=== PATIENT | male | born 1995 | race Caucasian/White ===

== ENCOUNTER 2017-01-15 22:10 | Emergency (ER) | payer SELFPAY ==
[~2017-01-15] VITALS: Ht 172.7 cm; Wt 61.8 kg
[~2017-01-15 22:10] MED LIST: LORA10TA PO; NAPR-576 PO
[2017-01-15 22:17] VITALS: BP 116/87; PULSE 72; RESP 16; TEMP 98.7; O2SAT 98
[2017-01-15 22:44] VITALS: BP 116/87; PULSE 72; RESP 18; TEMP 98.7; O2SAT 98
[2017-01-15] MEDS ORDERED: LAMI1AER TOPICAL (23:39)
--- NOTE | 2017-01-15 23:47 | PD ---
HPI Chief Complaint: Skin Problem Time Seen by Provider: 23:31 Travel History International Travel<30 days: No Contact w/Intl Traveler<30days: No Traveled to known affect area: No History of Present Illness HPI The patient is a 21-year-old male who has had a problem with discoloration of the skin for over a year. Upon the recommendation of the pharmacist he tried Selsun Blue and the rash got more erythematous and became extremely pruritic. This is been in the last 2 days he has had this pruritic rash which she states was made worse by the Selsun Blue. He has an area of skin on the back of his neck that was not treated with Selsun Blue and this does appear to be tinea versicolor. PFSH Past Medical History Diminished Hearing: No Immunizations Current: Yes (UTD) Tetanus Vaccination: Unknown Influenza Vaccination: No Social History Alcohol Use: No Tobacco Use: No Substance Use: No Allergies-Medications (Allergen,Severity, Reaction): Coded Allergies: No Known Allergies (Verified , 02/26/16) Reported Meds & Prescriptions Reported Meds & Active Scripts Active Lamisil AF Defense Topical (Tolnaftate) 1 % Aer 1 Applic TOPICAL HS Naproxen 500 Mg Tab 500 Mg PO BID PRN Reported Claritin 10 Mg Tab (Loratadine) 10 Mg Tab 10 Mg PO DAILY Review of Systems Except as stated in HPI: all other systems reviewed are Neg Physical Exam Narrative GENERAL: Well-nourished, well-developed patient in slight apparent distress with his pruritic rash on his chest. His vital signs are normal. SKIN: Warm and dry. There are patchy areas of decreased pigmentation surrounded by erythematous areas. The patient finds this rash on his chest very pruritic. HEAD: Normocephalic. EYES: No scleral icterus. No injection or drainage. NECK: Supple, trachea midline. No JVD or lymphadenopathy. CARDIOVASCULAR: Regular rate and rhythm without murmurs, gallops, or rubs. RESPIRATORY: Breath sounds equal bilaterally. No accessory muscle use. GASTROINTESTINAL: Abdomen soft, non-tender, nondistended. MUSCULOSKELETAL: No cyanosis, or edema. BACK: Nontender without obvious deformity. No CVA tenderness. Data Data Last Documented VS Vital Signs Date Time Temp Pulse Resp B/P Pulse Ox O2 Delivery O2 Flow Rate FiO2 01/15/17 22:48 72 18 01/15/17 22:44 98.7 116/87 98 MDM Medical Decision Making Medical Screen Exam Complete: Yes Emergency Medical Condition: Yes Medical Record Reviewed: Yes Differential Diagnosis Allergy due to Selsun Blue, reaction of Selsun Blue to killing fungus, irritation of Selsun Blue. Narrative Course It is possible that this may be an allergy or adverse reaction to Selsun Blue. Plan: The patient will discontinue the Selsun Blue and use Lamisil and a small area of his chest to see if this helps his rash. In any case, he needs to follow-up with a supervisor [facility]. Diagnosis Primary Impression: Adverse reaction to antifungal drug Additional Instructions: As we discussed, try a small area with the antifungal cream. It takes weeks to kill a fungus on the skin. Follow-up with a [facility]. Med/Other Pt SpecificInfo: Prescription(s) given Scripts Tolnaftate Topical (Lamisil AF Defense Topical)1 % Aer1 Applic TOPICAL HS #1 BOTTLE Ref 0 Prov:Gerry Lamb MD 01/15/17 Disposition: 01 DISCHARGE HOME Condition: Stable Gerry Lamb MD Jan 15, 2017 23:47
[2017-01-15 23:55] VITALS: BP 112/78; PULSE 74; RESP 18; O2SAT 98
== END 2017-01-15 23:57 | disposition home or self-care (01) ==
LOC: PHED 22:10
DX: R21 Rash and other nonspecific skin eruption (principal); T50.995A Adverse effect of other drugs, medicaments and biological substances, initial encounter; Y93.9 Activity, unspecified; Y92.9 Unspecified place or not applicable; Y99.9 Unspecified external cause status
CPT/HCPCS: 99282